=== PATIENT | male | born 1975 | race Caucasian/White ===

== ENCOUNTER → 2023-03-27 | Day surgery (SDC) | payer OTHER ==
[~2023-03-27] MED LIST: HYDROmorphone 0.5 MG/0.5 ML Syringe IVPUSH ONE; HYDROmorphone 1 MG/ML Syringe IVPUSH ONE; LORazepam 2 MG/ML SDV IVPUSH ONE; Lactated Ringers 1,000 ML IV SCH; Lidocaine 1% 2 ML ONE; Ondansetron 4 MG/2 ML SDV ONE; Propofol 200 MG/20 ML SDV ONE; Sodium Chloride 0.9% 10 ML Syringe FLUSH PRN; Succinylcholine 200 MG/10 ML MDV ONE; fentaNYL 100 MCG/2 ML SDV ONE
== END | disposition home or self-care (01) ==
LOC: JD.ED 15:41 → JD.SDS 16:53
PROVIDERS: ATTEND Surgery
DX: T18.128A Food in esophagus causing other injury, initial encounter (principal); Z90.49 Acquired absence of other specified parts of digestive tract; Z98.890 Other specified postprocedural states; Z91.048 Other nonmedicinal substance allergy status; Z79.899 Other long term (current) drug therapy
CPT/HCPCS: 43247; J0330; J1170; J2060; J2405; J2704; J3010; J3490; J7120; 99285